=== PATIENT | female | born 1950 | race Caucasian/White ===

== ENCOUNTER 2018-05-15 12:47 | Day surgery (SDC) | payer MEDICARE ==
[~2018-05-15] VITALS: Ht 167.6 cm; Wt 100.9 kg
[2018-05-15 13:19] LABS: HEMATOCRIT 38.2 % (36.0-48.0); HEMOGLOBIN 12.4 g/dL (12-16); MCH 29.3 pg (26.0-34.0); MCHC 32.5 g/dL (31.0-37.0); MCV 90.3 fL (80.0-100.0); MEAN PLATELET VOLUME 11.8 fL (7.4-10.4); RBC 4.23 10x6/uL (4.00-5.40); RDW 14.5 % (11.5-14.5); WBC 6.5 10x3/uL (4.8-10.8)
[2018-05-15] MEDS ORDERED: TRAZODONE TAB 50M (13:46)
[2018-05-15] MEDS ORDERED: METFORMIN HCL500 M1 (13:46)
[2018-05-15] MEDS ORDERED: BEVESPI (13:46)
[2018-05-15] MEDS ORDERED: REQUIP0.25 MG PO (13:46)
[2018-05-15] MEDS ORDERED: TOPIRAMATE TAB 100 (13:46)
[2018-05-15] MEDS ORDERED: GABAPENTIN100 MG PO (13:47)
[2018-05-15] MEDS ORDERED: FUROSEMIDE40 MG (13:47)
[2018-05-15] MEDS ORDERED: ALBUTEROL AER HFA (13:47)
[2018-05-15] MEDS ORDERED: LEVOTHYROXINE150 MCG PO (13:48)
[2018-05-15] MEDS ORDERED: K-DUR20 MEQ PO (13:48)
[2018-05-15] MEDS ORDERED: ULTRAM50 MG PO (13:48)
[2018-05-15] MEDS ORDERED: ELIQUIS5 MG (13:48)
[2018-05-15] MEDS ORDERED: NORVASC5 MG (13:49)
[2018-05-15 13:51] VITALS: BP 129/58; Ht 167.6 cm; Wt 100.9 kg
[2018-05-15 13:55] LABS: ANION GAP 15.9 mmol/L (8-16); CALCIUM 8.4 mg/dL (8.5-10.1); CARBON DIOXIDE 25.2 mmol/L (21.0-32.0); CREATININE - SERUM 1.2 mg/dL (0.6-1.3); POTASSIUM - SERUM 4.1 mmol/L (3.5-5.1)
--- NOTE | 2018-05-15 14:31 | NUR ---
1425-DILATE ESOPHAGUS WITH 18-20 CRE BALLOON TO 60 YAKUT.
[2018-05-15] MEDS ORDERED: PROTONIX40 MG PO (15:12)
--- NOTE | 2018-05-15 15:50 | NUR ---
PATIENT SITTING IN CHAIR IN ROOM, DRESSED, SPEAKING WITH DR HERRERA [id number] DISCHARGED HOME VIA WHEELCHAIR TO PRIVATE VEHICLE WITH SPOUSE
--- NOTE | 2018-05-16 17:19 | OP ---
PATIENT NAME: JOVITA CORNELIUS MEDICAL RECORD: [id number] :52 LOCATION:[facility] ADMISSION DATE: SURGEON: ANGEL HERRERA MD DATE OF OPERATION: 05/15/2018 PROCEDURE: EGD with biopsy and esophageal balloon dilatation. REFERRING PHYSICIAN: Tete Alas, in [place], [place]. INDICATIONS: Ms. Cornelius is delightful 68-year-old woman who has had an approximate two-month history of intermittent dysphagia. She has trouble swallowing pudding or anything down, it seems to hang somewhat in her throat and then will eventually pass. She has had no nausea, vomiting, abdominal pain, melena, or hematochezia. She is scheduled for an upcoming colonoscopy. She presents for outpatient EGD. PREMEDICATIONS: Total IV anesthesia (COPD, obstructive sleep apnea, diabetes mellitus), propofol 120 mg. INSTRUMENT: Olympus video gastroscope and esophageal balloon dilator 54-60 Luxembourger. PROCEDURE AND FINDINGS: After receiving informed consent, Ms. Mckays posterior pharynx was anesthetized with Cetacaine spray, placed in left lateral decubitus position and sedated as per anesthesia. After achieving adequate level of sedation, the gastroscope was introduced per orally and advanced into the duodenum without difficulty. The esophageal mucosa was without erythema, ulcers, or masses. At the GE junction was a nonobstructive Schatzki's ring. Esophageal balloon dilator was passed through into the stomach and then positioned midway across the distal esophagus insufflated from a 54 to a 60-Luxembourger size, held in place on the appropriate PSI for 60 seconds, then deflated with good results. The balloon was withdrawn and then biopsies were taken from the mid and distal esophagus to rule out microscopic evidence of GE reflux disease and exclude eosinophilic esophagitis. The gastric mucosa was notable for diffuse antral erythema and antral biopsies were obtained to rule out Helicobacter pylori. In the body of the stomach was a small 0.3 cm sessile polyp that was cold biopsied. There were no lesions seen in the cardia or fundus. Pylorus was patent and competent. Duodenal mucosa was without erythema or ulcers, appeared normal through the second portion. Gastroscope was then withdrawn. Ms. Cornelius tolerated the procedure well, no immediate complications. ASSESSMENT: 1. Ring at the gastroesophageal junction, status post esophageal balloon dilatation. 2. Mild gastritis. 3. Gastric polyp. RECOMMENDATIONS: 1. Follow up histopathology. 2. Continue pantoprazole 40 mg p.o. daily. If dysphagia persists despite esophageal balloon dilatation, recommend barium swallow, possible video fluoroscopic swallowing study. TRANSINT:[id number] Voice Confirmation ID: [id number] DOCUMENT ID: [id number] OPERATIVE REPORT [id number] JOVITA CORNELIUS TERRI MD at 1719 CC: TETE ALAS [id number] DICTATION DATE: 05/15/18 1437 UROLOGIC SURGEON: 05/15/18 2333 [facility] [place] 05/15/18 [id number] [place] [address]
== END 2018-05-15 15:53 | disposition home or self-care (01) ==
LOC: D.OPS 12:47
PROVIDERS: Anesthesiology; ATTEND Internal Medicine Gastroenterology
DX: R13.10 Dysphagia, unspecified (principal); J44.9 Chronic obstructive pulmonary disease, unspecified; G47.33 Obstructive sleep apnea (adult) (pediatric); E11.9 Type 2 diabetes mellitus without complications